=== PATIENT | male | born 1935 | race Caucasian/White ===

== ENCOUNTER 2016-08-04 09:16 | Emergency (ER) | payer MEDICARE, MEDICAID ==
[~2016-08-04] VITALS: Ht 175.3 cm; Wt 70.3 kg
[2016-08-04 09:36] VITALS: BP 65/33
== END 2016-08-04 12:12 | disposition expired ==
LOC: EDBD 09:16 → ER 09:18
DX: I46.9 Cardiac arrest, cause unspecified (principal); F32.9 Major depressive disorder, single episode, unspecified; K21.9 Gastro-esophageal reflux disease without esophagitis; E78.5 Hyperlipidemia, unspecified; I10 Essential (primary) hypertension; R41.82 Altered mental status, unspecified; Z51.5 Encounter for palliative care
CPT/HCPCS: 93005